=== PATIENT | male | born 1970 | race Caucasian/White ===

== ENCOUNTER 2019-06-06 09:27 | Day surgery (SDC) | payer OTHER ==
[~2019-06-06] VITALS: Ht 182.9 cm; Wt 113.4 kg
[~2019-06-06 09:27] MED LIST: LOSARTAN-HCTZ1 EAC1 PO
--- NOTE | 2019-06-06 10:45 | NUR ---
06/06/19 Edgardo5 Mickie David-PT ARRIVES TO PACU ON 2 L VIA NC AND IS AWAKE. ALERT, AND ORIENTED. PT VERBALIZES NO PAIN/NAUSEA AND REPOSITIONS SELF TO SIT UP IN BED. PT SIPS WATER AND TOLERATES.
--- NOTE | 2019-06-07 10:23 | OR ---
[facility] [address], [place] [address] Signed DATE OF OPERATION: 06/06/2019 SURGEON: Corine Delaney MD PREOPERATIVE DIAGNOSIS: Colon screening; negative colonoscopy 2005, negative family history. POSTOPERATIVE DIAGNOSIS: Polyps x2 (adenoma and hyperplastic polyp). PROCEDURE: Total colonoscopy to cecum with cold morcellation polypectomy x2 (right colon and rectosigmoid). ANESTHESIA: Intravenous sedation, fentanyl 100 mcg, Versed 4 mg. INDICATION: This 48-year-old white man is a patient of Dr. Valverde of [employer], [place]. He underwent colonoscopy in 2005, which was normal. He has no family history of colon cancer. He is admitted at this time to undergo colonoscopy on the basis of his age and as screening tool for colon evaluation. He understands risks of bleeding, infection, and perforation related to colonoscopy and wished to proceed. FINDINGS: The prep was excellent. Complete colonoscopy was undertaken to the cecum without question. He had a small adenomatous polyp in the distal ascending colon, which was excised and a small hyperplastic polyp of the rectosigmoid also excised. The remaining colon was normal. DESCRIPTION OF PROCEDURE: The patient was brought to the endoscopy suite and placed in lateral decubitus position, given intravenous sedation to the point of slurred speech and nystagmus. Digital rectal examination was normal. An Olympus video colonoscope was passed in the rectum and manipulated throughout the colon ultimately intubating the cecum itself. The ileocecal valve and appendiceal orifice were normal. Scope was withdrawn and examination throughout showed no sign of abnormality until hepatic flexure area of the right colon, a small adenomatous-appearing polyp was noted. This was excised with cold morcellation technique. The scope was Electronically Signed By: CORINE DELANEY MD 06/07/19 1023 PATIENT NAME: CORINE DIOR OPERATIVE REPORT DATE OF : 66 REPORT #: [id number] PHYSICIAN: CORINE DELANEY MD PCP: Ananda Valverde DO REPORT IS CONFIDENTIAL AND NOT TO BE RELEASED WITHOUT AUTHORIZATION [facility] [address], [place] [address] Signed further withdrawn and there was no other abnormality into the rectosigmoid where a small hyperplastic-appearing polyp was noted. This was excised completely. The scope was removed after retroflexed view was found to be normal. The patient was taken to recovery room in good condition. CONCLUDING DIAGNOSIS: Polyps x2, one adenomatous, the other hyperplastic. PLAN: Recommend repeat colonoscopy in 3 years if final pathology of the polyp proves to be adenoma. MD LAWSON Ivy/MIKE /[id number] cc: Dr. Valverde Copies: ~ Electronically Signed By: CORINE DELANEY MD 06/07/19 1023 PATIENT NAME: CORINE DIOR OPERATIVE REPORT DATE OF : 66 REPORT #: [id number] PHYSICIAN: CORINE DELANEY MD PCP: Ananda Valverde DO REPORT IS CONFIDENTIAL AND NOT TO BE RELEASED WITHOUT AUTHORIZATION
--- NOTE | 2019-06-09 10:34 | PATH ---
[facility] [address] [place], [place] [address] Signed SPECIMEN(S): A ASCENDING SPECIMEN(S): B RECTO SIGMOID POLYP SPECIMEN SOURCE: A. ASCENDING B. RECTO SIGMOID POLYP CLINICAL HISTORY: Screening. Post Colon polyp. MICROSCOPIC DESCRIPTION: Histologic sections of all submitted blocks are examined by light microscopy. These findings, together with the gross examination, support the pathologic diagnosis. FINAL PATHOLOGIC DIAGNOSIS: A. Colon, ascending, polyp, polypectomy: - Fragments of tubular adenoma. - Negative for high-grade dysplasia or malignancy. B. Colon, rectosigmoid, polyp, polypectomy: - Fragments of colonic mucosa with no histopathologic abnormality. - Negative for dysplasia or malignancy. - See comment. COMMENT: Sections of the specimen submitted as "rectosigmoid polyp" contains two fragments of colorectal mucosa, one with a prominent mucosal lymphoid aggregate. No dysplasia or malignancy is seen. NAL:cml:C2NR GROSS DESCRIPTION: Two specimens are received in two containers, labeled "JM." A. The specimen, labeled "JM, ascending colon polyp," is received in formalin and consists of five pink-ball soft tissue fragment(s) that measure 0.2-0.3 cm in greatest dimension. The specimen is entirely submitted in cassette (A1). B. The specimen, labeled "JM, rectosigmoid polyp," is received in formalin and consists of two pink-ball soft tissue fragment(s) that measure 0.1-0.2 cm in greatest dimension. The specimen is entirely submitted in cassette (B1). JS (under the direct supervision of a pathologist) The Gross Description was prepared using a voice recognition system. The PATIENT NAME: CORINE DIOR PATHOLOGY DATE OF : 66 REPORT #: [id number] PHYSICIAN: LC GARZA PCP: Ananda Valverde DO REPORT IS CONFIDENTIAL AND NOT TO BE RELEASED WITHOUT AUTHORIZATION [facility] [address] [place] [address] Signed report was reviewed for accuracy; however, sound-alike word errors, addition and/or deletions may occur. If there is any question about this report, please contact Client Services. PERFORMING LABORATORY: The technical component was performed [email or web address] [address] (Rn Field: Linda Ridley MD; CLIA# [id number]). [facility], [address] [address] (CLIA# [id number]). Diagnostician: Tg Sarabia MD Pathologist Electronically Signed 06/09/2019 Copies: ~ PATIENT NAME: CORINE DIOR PATHOLOGY DATE OF : 66 REPORT #: [id number] PHYSICIAN: LC PATHOLOGY PCP: Ananda Valverde DO REPORT IS CONFIDENTIAL AND NOT TO BE RELEASED WITHOUT AUTHORIZATION
== END 2019-06-06 11:10 | disposition home or self-care (01) ==
LOC: OPS 09:27 → DS 09:29 → OPS 10:30
PROVIDERS: Surgery
PROC: 0DBN8ZZ Excision of Sigmoid Colon, Via Natural or Artificial Opening Endoscopic (ICD-10-PCS; 2019-06-06)
PROC: 0DBK8ZZ Excision of Ascending Colon, Via Natural or Artificial Opening Endoscopic (ICD-10-PCS; principal; 2019-06-06 10:30)
DX: Z12.11 Encounter for screening for malignant neoplasm of colon (principal); D12.2 Benign neoplasm of ascending colon; K63.5 Polyp of colon; I10 Essential (primary) hypertension; Z88.8 Allergy status to other drugs, medicaments and biological substances; Z88.0 Allergy status to penicillin; Z91.048 Other nonmedicinal substance allergy status
CPT/HCPCS: 99153; G0500; J2250; J3010; J7121